=== PATIENT | male | born 1995 | race African-American/Black ===

== ENCOUNTER 2017-06-23 05:29 | Emergency (ER) | payer MEDICAID ==
[~2017-06-23] VITALS: Ht 177.8 cm; Wt 68.0 kg
[2017-06-23 05:49] VITALS: BP 132/73
== END 2017-06-23 08:00 | disposition left against medical advice (07) ==
LOC: ER 05:29
DX: R05 Cough (principal); Z53.21 Procedure and treatment not carried out due to patient leaving prior to being seen by health care provider

== ENCOUNTER 2017-09-13 07:55 | Emergency (ER) | payer MEDICAID ==
[~2017-09-13] VITALS: Ht 177.8 cm; Wt 71.0 kg
[2017-09-13 09:09] VITALS: BP 126/72
[2017-09-13] MEDS ORDERED: KETOROLAC 30MG/ML VIAL IV ONE (09:15)
== END 2017-09-13 09:31 | disposition home or self-care (01) ==
LOC: ER 07:55
DX: K64.9 Unspecified hemorrhoids (principal); J45.909 Unspecified asthma, uncomplicated; F12.10 Cannabis abuse, uncomplicated
CPT/HCPCS: 96374; 99284; J1885

== ENCOUNTER 2018-06-04 10:38 | Emergency (ER) | payer MEDICAID ==
[~2018-06-04] VITALS: Ht 175.3 cm; Wt 68.0 kg
[2018-06-04 11:24] VITALS: BP 128/73
[2018-06-04 12:16] LABS: CLARITY URINE CLEAR (CLEAR); COLOR URINE YELLOW (YELLOW); KETONES URINE TRACE (NEGATIVE); LEUKOCYTE ESTERASE URINE NEGATIVE (NEGATIVE); NITRITE URINE NEGATIVE (NEGATIVE); OCCULT BLOOD URINE NEGATIVE (NEGATIVE); PH URINE 7.5 (4.5-8.0); PROTEIN URINE NEGATIVE (NEGATIVE); SPECIFIC GRAVITY URINE 1.021 (1.005-1.030); UROBILINOGEN URINE 0.2 E.U./dL (0.2-1.0)
== END 2018-06-04 13:13 | disposition left against medical advice (07) ==
LOC: ER 11:11
DX: Z53.21 Procedure and treatment not carried out due to patient leaving prior to being seen by health care provider (principal)

== ENCOUNTER 2019-06-26 08:42 | Emergency (ER) | payer MEDICAID ==
[~2019-06-26] VITALS: Ht 177.8 cm; Wt 69.5 kg
[2019-06-26 08:58] VITALS: BP 127/88
[2019-06-26 11:35] LABS: CLARITY URINE CLEAR (CLEAR); COLOR URINE YELLOW (YELLOW); KETONES URINE NEGATIVE (NEGATIVE); LEUKOCYTE ESTERASE URINE NEGATIVE (NEGATIVE); NITRITE URINE NEGATIVE (NEGATIVE); OCCULT BLOOD URINE NEGATIVE (NEGATIVE); PROTEIN URINE NEGATIVE (NEGATIVE); SPECIFIC GRAVITY URINE 1.021 (1.005-1.030)
== END 2019-06-26 10:30 | disposition left against medical advice (07) ==
LOC: ER 08:42
DX: N48.1 Balanitis (principal); J45.909 Unspecified asthma, uncomplicated
CPT/HCPCS: 81003; 99283

== ENCOUNTER 2020-01-08 18:55 | Emergency (ER) | payer MEDICAID ==
[~2020-01-08] VITALS: Ht 177.8 cm; Wt 70.3 kg
[2020-01-08] MEDS ORDERED: ACETAMINOPHEN 500MG TABLET PO ONE (19:45)
[2020-01-08 20:10] VITALS: BP 138/65
[2020-01-08] MEDS ORDERED: IBUPROFEN 600MG TABLET PO ONE (20:15)
[2020-01-13] MEDS ORDERED: P20 MT (14:09)
[2020-01-13] MEDS ORDERED: CELE200C PO (14:09)
[2020-01-13] MEDS ORDERED: AMLO10TA80 PO (14:09)
== END 2020-01-08 21:04 | disposition home or self-care (01) ==
LOC: ER 18:55
DX: Z03.818 Encounter for observation for suspected exposure to other biological agents ruled out (principal); B34.9 Viral infection, unspecified; J45.909 Unspecified asthma, uncomplicated
CPT/HCPCS: 87635; 87804; 99283

== ENCOUNTER 2020-02-13 01:35 | Emergency (ER) | payer MEDICAID ==
[~2020-02-13] VITALS: Ht 172.7 cm; Wt 75.0 kg
[~2020-02-13 01:35] MED LIST: AMLO10TA80 PO; CELE200C PO; P20 MT
[2020-02-13] MEDS ORDERED: AZITHROMYCIN 500 MG TABLET PO ONE (02:30)
[2020-02-13] MEDS ORDERED: LIDOCAINE HCL 1% 20ML VIAL (Pyxis) INJ INFIL ONE (02:30)
[2020-02-13] MEDS ORDERED: CEFTRIAXONE SODIUM 250 MG/VIAL IM ONE (02:30)
[2020-02-13 02:32] VITALS: BP 113/64
== END 2020-02-13 02:34 | disposition home or self-care (01) ==
LOC: ER 01:35
DX: A54.9 Gonococcal infection, unspecified (principal); F12.10 Cannabis abuse, uncomplicated; J45.909 Unspecified asthma, uncomplicated; Z20.2 Contact with and (suspected) exposure to infections with a predominantly sexual mode of transmission; Z90.49 Acquired absence of other specified parts of digestive tract
CPT/HCPCS: 96372; 99283; J0696; J3490

== ENCOUNTER 2020-03-03 14:56 | Emergency (ER) | payer MEDICAID ==
[~2020-03-03] VITALS: Ht 177.8 cm; Wt 68.0 kg
[2020-03-03 16:38] VITALS: BP 109/58
[2020-03-03 19:02] LABS: CLARITY URINE CLEAR (CLEAR); COLOR URINE YELLOW (YELLOW); KETONES URINE NEGATIVE (NEGATIVE); LEUKOCYTE ESTERASE URINE NEGATIVE (NEGATIVE); NITRITE URINE NEGATIVE (NEGATIVE); OCCULT BLOOD URINE NEGATIVE (NEGATIVE); PROTEIN URINE NEGATIVE (NEGATIVE); SPECIFIC GRAVITY URINE 1.022 (1.005-1.030); UROBILINOGEN URINE 0.2 E.U./dL (0.2-1.0)
[2020-03-06 04:11] LABS: NEISSERIA GONORRHOEAE NAA Negative (Negative)
== END 2020-03-03 18:44 | disposition home or self-care (01) ==
LOC: ER 14:56
DX: Z20.2 Contact with and (suspected) exposure to infections with a predominantly sexual mode of transmission (principal); F12.10 Cannabis abuse, uncomplicated; F17.200 Nicotine dependence, unspecified, uncomplicated; J45.909 Unspecified asthma, uncomplicated; Z90.49 Acquired absence of other specified parts of digestive tract
CPT/HCPCS: 81003; 87491; 87591; 99283

== ENCOUNTER 2020-06-30 00:55 | Emergency (ER) | payer MEDICAID ==
[~2020-06-30] VITALS: Ht 177.8 cm; Wt 73.0 kg
[2020-06-30] MEDS ORDERED: HYDR30CR80 TP (02:35)
[2020-06-30 02:51] VITALS: BP 120/67
== END 2020-06-30 02:52 | disposition home or self-care (01) ==
LOC: ER 00:55
DX: K64.4 Residual hemorrhoidal skin tags (principal); J45.909 Unspecified asthma, uncomplicated; F12.90 Cannabis use, unspecified, uncomplicated
CPT/HCPCS: 99282

== ENCOUNTER 2020-08-27 01:06 | Emergency (ER) | payer MEDICAID ==
[~2020-08-27] VITALS: Ht 177.8 cm; Wt 75.0 kg
[~2020-08-27 01:06] MED LIST changes: +HYDR30CR80 TP
[2020-08-27 01:33] VITALS: BP 124/57
[2020-08-27] MEDS ORDERED: MICO15CR4 TP (01:58)
== END 2020-08-27 02:11 | disposition home or self-care (01) ==
LOC: ER 01:29
DX: N48.1 Balanitis (principal); J45.909 Unspecified asthma, uncomplicated
CPT/HCPCS: 99283

== ENCOUNTER 2022-07-31 20:00 | Emergency (ER) | payer MEDICAID ==
[~2022-07-31] VITALS: Ht 177.8 cm; Wt 73.0 kg
[~2022-07-31 20:00] MED LIST changes: +MICO14CR6 TP
[2022-07-31 20:08] VITALS: BP 128/62
[2022-07-31 20:43] LABS: BASOPHILS % 0.3 % (0.0-2.0); EOSINOPHILS % 0.6 % (0.0-5.0); HEMATOCRIT. 40.6 % (42.0-52.0); HEMOGLOBIN. 14.1 g/dL (14.0-18.0); LYMPHOCYTES % 15.3 % (20.0-50.0); MEAN CORPUSCULAR VOLUME 89.3 fL (80.0-94.0); MEAN PLATELET VOLUME 6.5 fl (7.4-10.4); NEUTROPHILS % 72.8 % (40.0-76.0); PLATELET 453 x1000/uL (130-400); RED BLOOD CELL COUNT 4.55 mill/uL (4.7-6.1); RED CELL DISTRIBUTION WIDTH 12.1 % (11.6-14.6)
[2022-07-31 20:53] LABS: CHLORIDE 105 mEq/L (98-107)
[2022-07-31 23:25] LABS: CLARITY URINE CLEAR (CLEAR); COLOR URINE YELLOW (YELLOW); KETONES URINE 1+ (NEGATIVE); LEUKOCYTE ESTERASE URINE NEGATIVE (NEGATIVE); NITRITE URINE NEGATIVE (NEGATIVE); OCCULT BLOOD URINE NEGATIVE (NEGATIVE); PROTEIN URINE 1+ (NEGATIVE); SPECIFIC GRAVITY URINE 1.026 (1.005-1.030)
[2022-08-01] MEDS ORDERED: FLUT9.9S BOTHNSTRLS (00:10)
[2022-08-01] MEDS ORDERED: [UNRECOGNIZED DRUG - CODE] PO (00:12)
== END 2022-08-01 00:42 | disposition home or self-care (01) ==
LOC: ER 20:29
DX: B34.9 Viral infection, unspecified (principal); J45.909 Unspecified asthma, uncomplicated; F12.10 Cannabis abuse, uncomplicated
CPT/HCPCS: 36415; 71045; 80053; 81003; 85025; 99284